=== PATIENT | female | born 1985 | race Caucasian/White ===

== ENCOUNTER 2023-12-21 06:19 | Emergency (ER) | payer OTHER ==
[~2023-12-21] VITALS: Ht 167.6 cm; Wt 71.0 kg
[2023-12-21 06:25] VITALS: O2SAT 98
[2023-12-21] MEDS: OLANZAPINE 10 MG/VIAL IM STA (08:00)
[2023-12-21 10:30] LABS: CHLORIDE 107 mEq/L (98-107); SODIUM 141 mEq/L (136-145)
[2023-12-21 10:31] LABS: CALCIUM 8.9 mg/dL (8.7-10.4); CARBON DIOXIDE 26 mEq/L (21-32)
[2023-12-21 10:36] LABS: CREATININE 0.9 mg/dL (0.6-1.0); GLUCOSE 97 mg/dL (70-105); UREA NITROGEN BLOOD 11 mg/dL (9-23)
[2023-12-21 10:38] LABS: ACETAMINOPHEN < 2 ug/mL (10-30); HCG SCREEN NEGATIVE
[2023-12-21 10:40] LABS: ETHANOL BLOOD < 10 mg/dL (<10); THYROID STIMULATING HORMONE 1.78 uIU/mL (0.55-4.78)
[2023-12-21 10:50] LABS: EOSINOPHILS % 0.4 % (0.0-5.0); HEMATOCRIT. 33.7 % (36.0-48.0); HEMOGLOBIN. 11.1 g/dL (12.0-16.0); LYMPHOCYTES % 28.4 % (20.0-50.0); MEAN CORPUSCULAR HEMOGLOBIN 28.1 pg (28.0-32.0); MEAN CORPUSCULAR VOLUME 85.2 fL (81.0-99.0); MEAN PLATELET VOLUME 7.9 fl (7.4-10.4); MONOCYTES % 8.1 % (2.0-8.0); NEUTROPHILS % 62.1 % (40.0-76.0); PLATELET 349 x1000/uL (130-400); RED BLOOD CELL COUNT 3.96 mill/uL (4.2-5.4); RED CELL DISTRIBUTION WIDTH 15.1 % (11.6-14.6); WHITE BLOOD COUNT 7.3 x1000/uL (4.5-11.0)
[2023-12-21 11:40] VITALS: BP 132/88; PULSE 101; RESP 16; TEMP 98.2
== END 2023-12-21 15:15 | disposition home or self-care (01) ==
LOC: ER 06:19
DX: F41.1 Generalized anxiety disorder (principal); I10 Essential (primary) hypertension
CPT/HCPCS: 80048; 80307; 80329; 80320; 84703; 83690; 84443; 85025; 36415; 96372; 99285; J3490; Z7610 ×2; G0480